=== PATIENT | female | born 1990 | race Caucasian/White ===

== ENCOUNTER 2020-09-24 16:18 | Emergency (ER) | payer SELFPAY ==
[2020-09-24 16:56] VITALS: BP 130/82; PULSE 103; TEMP 99.3; BMI 31.9
[2020-09-24] MEDS ORDERED: predniSONE 20 MG TABLET (UD) PO ONE (17:35)
[2020-09-24] MEDS ORDERED: ALBUTEROL SO4 2.5/IPRATROPIUM 0.5 INH SOL 3 ML VIAL.NEB. NEB ONE (18:12)
[2020-09-24] MEDS: ALBUTEROL SO4 2.5/IPRATROPIUM 0.5 INH SOL 3 ML VIAL.NEB. NEB SCH (18:15)
== END 2020-09-24 19:13 | disposition home or self-care (01) ==
LOC: JER 16:18
PROC: 3E0F7GC Introduction of Other Therapeutic Substance into Respiratory Tract, Via Natural or Artificial Opening (ICD-10-PCS; principal; 2020-09-24)
DX: J45.21 Mild intermittent asthma with (acute) exacerbation (principal)
CPT/HCPCS: 99283-25; C9803; U0003

== ENCOUNTER 2021-08-07 10:40 | Emergency (ER) | payer SELFPAY ==
[2021-08-07 11:05] VITALS: BMI 25.8
[2021-08-07] MEDS ORDERED: ALBUTEROL SO4 2.5/IPRATROPIUM 0.5 INH SOL 3 ML VIAL.NEB. NEB ONE (12:15)
[2021-08-07 12:48] LABS: HEMATOCRIT 36.8 % (32.4-45.2); HEMOGLOBIN 12.2 GM/dL (10.7-15.3); MCH 28.7 pg (25.7-33.7); MCHC 33.1 g/dl (32.0-36.0); MEAN CELL VOLUME 86.6 fl (80-96); PLATELET COUNT 262 10^3/uL (134-434); RBC 4.25 M/mm3 (3.60-5.2); RDW 16.5 % (11.6-15.6); WHITE BLOOD COUNT 15.5 K/mm3 (4.0-10.0)
[2021-08-07 13:05] LABS: ALBUMIN 3.9 g/dl (3.4-5.0); BLOOD UREA NITROGEN 12.4 mg/dL (7-18)
[2021-08-07 13:08] LABS: CREATININE 0.9 mg/dL (0.55-1.3)
[2021-08-07 13:09] LABS: BILIRUBIN,TOTAL 0.4 mg/dL (0.2-1); TOT PROT 7.5 g/dl (6.4-8.2)
[2021-08-07] MEDS ORDERED: SODIUM CHLORIDE 0.9% 500 ML INFUS.BAG IV ONE ×2 (13:32→16:24)
[2021-08-07 13:53] LABS: ANISOCYTOSIS 0; HELMET CELLS 0; HOWELL-JOLLY BODIES 0; MACROCYTOSIS 0; OVALOCYTE 0; PLATELET ESTIMATE NORMAL; ROULEAU 0; SICKELED CELLS 0; TARGET CELLS 0; TEAR DROP CELLS 0; TOXIC GRANULATION 0
[2021-08-07 16:25] VITALS: TEMP 98.6
[2021-08-07] MEDS ORDERED: ACETAMINOPHEN 650 MG/20.3 ML ORAL SOLUTION (CUPS) PO ONE (16:26)
[2021-08-07] MEDS ORDERED: ALBUTEROL SO4 HFA INHALER IH PRN (18:54)
[2021-08-07] MEDS ORDERED: ALBUTEROL SO4 HFA INHALER IH ONE ×2 (20:16→20:19)
[2021-08-08 18:46] VITALS: BP 120/74; PULSE 106
== END 2021-08-07 20:30 | disposition home or self-care (01) ==
LOC: JER 10:40
PROC: 3E0F7GC Introduction of Other Therapeutic Substance into Respiratory Tract, Via Natural or Artificial Opening (ICD-10-PCS; principal; 2021-08-07)
DX: J45.901 Unspecified asthma with (acute) exacerbation (principal)
CPT/HCPCS: 36415; 71045-TC-FY; 80053; 82962; 84443; 85025; 85379; 93005; 93010; 99284-25